=== PATIENT | male | born 1960 | race Hispanic/Latino ===

== ENCOUNTER 2020-06-02 15:19 | Emergency (ER) | payer SELFPAY ==
[~2020-06-02 15:19] MED LIST: Amiodarone 150 MG/3 ML VIAL ONE; EPINEPHrine 1 MG/10 ML Abboject SYRINGE ONE
[2020-06-02 16:00] LABS: #Basophils 0.1 thou/uL (0.0-0.2); #Lymphocytes 2.4 thou/uL (1.20-3.40); #Monocytes 0.7 thou/uL (0.11-0.59); #Neutrophils 6.4 thou/uL (1.40-6.50); %Basophils 1.4 % (0.0-1.0); %Eosinophils 0.1 % (0.0-10.0); %Monocytes 6.9 % (0.0-10.0); %Neutrophils 66.6 % (42.0-75.0); Hemoglobin 12.2 g/dL (14.0-18.0); Mean Corpuscular HGB CONC 31.6 g/dL (32.0-36.0); Mean Corpuscular Hemoglobin 31.5 pg (27.0-31.0); Mean Corpuscular Volume 99.7 fL (78.0-98.0); Platelet Count 123 thou/uL (130-400); RBC Distribution Width 11.7 % (11.5-14.5); Red Blood Cell (RBC) Count 3.85 mill/uL (4.70-6.10); White Blood Cell (WBC) Count 9.5 thou/uL (4.8-10.8)
[2020-06-02 16:10] LABS: CKMB 15.1 ng/mL (0-6.6)
[2020-06-02 16:13] LABS: Anion Gap 27 mmol/L (10-20); Carbon Dioxide 11 mmol/L (22-29); Chloride 106 mmol/L (98-107); Potassium 5.3 mmol/L (3.5-5.1); Sodium 139 mmol/L (136-145)
[2020-06-02 16:15] LABS: BUN (Urea Nitrogen) 9 mg/dL (8.4-25.7); Calc. Creatinine Clearance 0 mL/min (70-130); Estimated GFR-MDRD 83
[2020-06-02 16:16] LABS: ALT (SGPT) 264 U/L (8-55); AST (SGOT) 245 U/L (5-34); Albumin 2.2 g/dL (3.5-5.0); Alkaline Phosphatase 85 U/L (40-110); Bilirubin, Total 0.2 mg/dL (0.2-1.2); Calcium 7.7 mg/dL (7.8-10.44); Globulin 2.7 g/dL (2.4-3.5); Glucose 543 mg/dL (70-105); Protein, Total 4.9 g/dL (6.0-8.3)
== END 2020-06-02 18:14 | disposition expired ==
LOC: MADERS 15:19
DX: I46.9 Cardiac arrest, cause unspecified (principal); E11.9 Type 2 diabetes mellitus without complications; E78.5 Hyperlipidemia, unspecified; I10 Essential (primary) hypertension
CPT/HCPCS: 80053; 82553; 84484; 85025; 85379; 92950; 96374; 96375; J0171; J0282